=== PATIENT | female | born 2000 | race Caucasian/White ===

== ENCOUNTER 2022-02-22 01:40 | Inpatient (IN) | payer SELFPAY, OTHER ==
[2022-02-22] VITALS (15 sets, daily range): BP systolic 112–152; BP diastolic 68–89; PULSE 66–88; RESP 15–16; TEMP 36.3–36.9; O2SAT 96–99; BMI 35.3
--- NOTE | 2022-02-22 01:50 | HP.PCM.OB_ITS ---
HPI - General General Date of Admission: 02/22/22 HPI Narrative TERESA SALAZAR, is a 22 F at 40.5 weeks who presents as a transfer from [facility] for active labor and increased blood pressures. Purse Framer reported patient's pressures were ranging 150-160/100's. Maternal Data Information VIKTOR Calculator Estimated Delivery Date Method Current WG Current Estimate 02/17/22 Manual 40w 5d PFSH PFSH Allergy/AdvReac Type Severity Reaction Status Date / Time No Known Allergies Allergy Verified 02/22/22 02:15 Visit Details OB Flowsheet Initial Weight: Not Recorded Date -?-?-?-?-?-?-?-?-?-?-?-?- EGA Weight BP Urine Prot -?-?-?-?-?-?-?-?-?-?-?-?- Glucose FHR FuHt Pres Dilation -?-?-?-?-?-?-?-?-?-?-?-?- Effaced St Visit Note 02/22/22 -?-?-?-?-?-?-?-?-?-?-?-?- 40w 5d 193 lb 143/81 137/75 Pending -?-?-?-?-?-?-?-?-?-?-?-?- -?-?-?-?-?-?-?-?-?-?-?-?- ROS Eyes Eyes: Denies blurry vision, change in vision or spots in vision ENT HEENT: Denies dizziness or headache(s) Cardiovascular Cardiovascular: Denies abdominal pain, chest pain or dyspnea Respiratory/Chest Respiratory/Chest: Denies cough, dyspnea, shortness of breath at rest or shortness of breath with exertion Gastrointestinal Gastrointestinal: Denies abdominal pain, diarrhea or vomiting Genitourinary Genitourinary: Denies change in urinary stream, difficulty urinating or dysuria Musculoskeletal Musculoskeletal: Reports none Integumentary Integumentary: Denies rash Neurologic Neurologic: Denies dizziness, headache(s), memory loss or weakness Psychiatric Psychiatric: Reports none Vital Signs Vital Signs Vital Signs: 02/22/22 01:49 02/22/22 01:49 Pulse Rate 83 Blood Pressure 143/81 H BP Systolic 143 BP Diastolic 81 Weight Weight: 193 lb Body Mass Index (BMI) 35.3 Physical Exam Const alert, oriented x3 and no apparent distress General Appearance: cooperative Orientation / Consciousness: awake Exam Limitations: no limitations HEENT normocephalic Head and Scalp: normal to inspection Eyes General Eye: normal appearance of both eyes Neck full ROM and no lymphadenopathy Lymph Lymphatic: no lymphadenopathy noted Chest inspection of chest normal Resp normal respiratory effort, normal air movement and clear to auscultation bilaterally Effort and Inspection: able to speak in complete sentences and symmetric chest movement Cardio regular rate and regular rhythm GI normal to inspection, nondistended, normoactive bowel sounds Manual OB Exam: presentation cephalic Amniotic Fluid: clear amniotic fluid Back/Spine normal ROM Extremity full ROM and no calf tenderness Skin no rashes or lesions noted General Skin Exam: no breakdown Neuro oriented x3 and CN's II-XII intact bilaterally Psych mental status grossly normal and thought process normal Labs Labs Labs: Blood Type Pending Antibody Screen Pending Hct Pending Hgb Pending Syphilis Total Ab Pending Rubella IgG Antibody Pending Hep Bs Antigen Pending HIV 1&2 Antibody Pending A+ Assessment & Plan (1) 40 weeks gestation of : (2) Active labor at term: (3) Elevated blood pressure reading without diagnosis of hypertension: PLAN: Plan CE 9.5cm/0 station Vertex Admit to labor and delivery Routine labs Start hypertension protocol Anticipate imminent delivery Dr. Basilio notified of above and is collaborating physician
[2022-02-22] MEDS: Oxytocin 10 UNITS/ML Vial IM (02:02)
[2022-02-22 02:27] LABS: Mucous, Urine 0 SEEN /hpf (<or=2+); Red Blood Cells-Urine 0 SEEN /hpf (0-5)
--- NOTE | 2022-02-22 02:38 | EX.PCM.OBRPT ---
Assessment & Plan (1) Precipitous delivery: (2) Spontaneous rupture of amniotic membranes: (3) Spontaneous onset of labor: (4) GBS screening not performed: (5) 40 weeks gestation of : (6) Laceration, obstetrical, first degree: Maternal Data Information VIKTOR Calculator Estimated Delivery Date Method Current WG Current Estimate 02/17/22 Manual 40w 5d Vaginal Delivery Maternal Presentation Maternal Presentation: Active Labor and Spontaneous Rupture of Membranes Maternal Presentation: at 40.5 that presented from [facility] for active, spontaneous labor with elevated blood pressures. Operative Information Date of Procedure: 02/22/22 Pre-Operative Diagnosis: Spontaneous onset of labor, SROM, Term gestation Post-Operative Diagnosis: Precipitous delivery, live female Surgery / Procedure Performed: Spontaneous Vaginal Delivery Type of Anesthesia: None Estimated Blood Loss: 150 Time of Delivery: 02:00 Findings Description of Procedure: Patient arrived to unit in active labor and involuntarily bearing down. Called to room. With minimal maternal effort, delivery of head followed immediately by anterior shoulder and remainder of infant body without any traction. Vigorous female placed on maternal abdomen and was attended to by nursing staff. IM Pitocin given for active management of the third stage of labor. 3 vessel cord clamped and cut by FOB after 2 minute delay. placed skin to skin with patient. Placenta delivered spontaneously and intact. Small first degree laceration repaired in usual fashion. Patient declined local anesthesia. Hemostasis obtained. Fundus firm 2 below U. EBL 150 cc. APGARS 8/9. Patient and bonding well at this time. Dr. Basilio notified of delivery. Presentation: Vertex Amniotic Membrane Rupture Type: Spontaneous Time of Membrane Rupture: 1899 Amniotic Fluid Description: Clear Placental Delivery Description: Spontaneous Placenta Disposition: [facility] Cord Vessel Description: 3 Vessels Cord Entanglement: None A Gender: Female (1 minute): 8 (5 minute): 9 Delayed Cord Clamping: Yes Post Vaginal Delivery Medications Given After Delivery: - (IM Pitocin) Episiotomy Description: None Laceration: 1st degree Complication Complications: None
[2022-02-22 03:18] LABS: Absolute Lymphocyte Count 1.73 X10^3/uL (0.83-4.51); Absolute Neutrophil Count 8.9 X10^3/uL (2.0-7.7); Basophil# 0.02 X10^3/uL; Basophil% 0.2 % (0-1); Eosinophil# 0.01 X10^3/uL; Eosinophils% 0.1 % (0-5); Hematocrit 40.5 % (37-47); Hemoglobin 13.6 g/dL (12.0-15.0); Lymphocyte # 1.73 X10^3/ul (0.83-4.51); Lymphocyte % 15.4 % (19-41); Mean Corp Hgb Conc 33.6 g/dL (32-36); Mean Corpuscular Hgb 29.9 pg (27.0-32.0); Monocyte# 0.58 X10^3/uL; Monocyte% 5.1 % (0-10); NRBC Flagged by Analyzer 0 % (0-5); Neutrophil # 8.86 X10^3/uL (2.7-7.7); Neutrophil % 78.6 % (47-70); Platelet Count 228 K/mm3 (150-450); RBC Distribution Width SD 45.2 fl (35.1-43.9); Red Blood Count 4.55 M/mm3 (4.2-5.4); White Blood Count 11.3 K/mm3 (4.4-11.0)
[2022-02-22 03:32] LABS: Color, Urine Yellow (Yellow); Glucose, Dipstick Normal (Normal); Ketone-Dipstick 5 mg/dl (Negative); Leukocyte Esterase-Dipstick 25 /ul (Negative); Nitrite-Dipstick Negative (Negative); Occult Blood-Urine Negative /ul (Negative); Protein-Dipstick 15 mg/dl (Negative); Specific Gravity, Urine 1.015 (1.002-1.030); Urine Bilirubin Dipstick Negative (Negative); Urine Clarity Clear (Clear); Urine Urobilinogen Normal (Normal)
[2022-02-22 03:40] LABS: Bacteria 1+ /hpf (None Seen); Squamous Epithelial Cells - UA 0-5 SEEN /hpf (5-10); White Blood Cells 0-5 SEEN /hpf (0-5)
[2022-02-22 03:49] LABS: Amphetamine Urine VISTA NEGATIVE (<1000 ng/mL); Barbiturate Urine VISTA NEGATIVE (< 200 ng/mL); Benzodiazepine Urine VISTA NEGATIVE (< 200 ng/mL); Cocaine Urine VISTA NEGATIVE (< 300 ng/mL); Ecstacy Urine VISTA NEGATIVE (< 500 ng/mL); Methadone Urine VISTA NEGATIVE (< 300 ng/mL); PCP Urine VISTA NEGATIVE (< 25 ng/mL); THC Urine VISTA NEGATIVE (< 50 ng/mL); Vista UDS pH Range 5
[2022-02-22 04:04] LABS: Protein, Urine (Random) 29.4 mg/dL (<11.9); Protein:Creat Ratio 315 mg/g CRE (0-200)
[2022-02-22 04:07] LABS: AST(SGOT) 21 U/L (15-37); Alanine Aminotransfer ALT/SGPT 26 U/L (13-56); Creatinine, Serum 0.85 mg/dL (0.55-1.02); EST Glomerular Filtration Rate 87 mL/min (>60); Est Glom Filt Rate - Afr Amer 105 mL/min (>60); Estimated Creatinine Clearance 80.72 ml/min; Uric Acid 3.8 mg/dL (2.6-6.0)
[2022-02-22 04:44] LABS: Rubella IgG Reactive (Nonreactive); Syphilis Antibodies Non-reactive
[2022-02-22 05:17] LABS: HIV - WCH Non-Reactive (Nonreactive); Hepatitis B Surface Antigen Non-Reactive (Nonreactive); Hepatitis C Antibody Non-Reactive (Nonreactive)
[2022-02-22 05:28] LABS: Chlamydia Trachomatis by PCR Negative (Negative); Neisserai gonorrhoeae by PCR Negative (Negative); Probe Check PASS; Sample Adequacy Control PASS; Specimen Processing Control PASS
[2022-02-23 04:45] VITALS: BP 113/73; PULSE 67; RESP 17; TEMP 36.5
--- NOTE | 2022-02-23 08:56 | PN.OBGYN_ITS ---
Subjective Subjective Pain well controlled. Average lochia. Denies headache or visual changes or epigastric discomfort. Working on breast-feeding. No other complaints. Objective Data Objective Data Vital Signs: Vital Signs Temp Pulse Resp BP Pulse Ox O2 Del Method 97.7 F L 67 17 113/73 98 Room Air 02/23/22 04:45 02/23/22 04:45 02/23/22 04:45 02/23/22 04:45 02/22/22 23:32 02/22/22 23:32 Oxygen Delivery Method Room Air Weight: 87.543 kg Body Mass Index (BMI) 35.3 Intake & Output: Intake and Output for Last 24 Hours 02/21/22 02/22/22 02/23/22 23:59 23:59 23:59 Output Total 600 / 600 Balance -600 / -600 Lab / Micro Data Result Diagrams: 02/22/22 01:58 02/22/22 01:58 Physical Exam Narrative 2+ DTRs, no clonus,1+ lower extremity edema Const alert and no apparent distress Narrative: Fundus firm, below umbilicus. Assessment & Plan (1) Precipitous delivery: PLAN: Status post vaginal delivery. Patient and are doing well. No evidence of preeclampsia with severe features. Appears to have had gestational hypertension. Has a blood pressure cuff at home. Monitor blood pressures and follow-up with supervisor shuttle fitting or our office later this week or early next week or as needed.
--- NOTE | 2022-02-23 08:58 | PCM.DC.SUM ---
Providers Date of Admission: 02/22/22 Date of Discharge: 02/23/22 Primary Care Physician: Claribel Primary Care Phys Reason For Visit: VAG Diagnosis Discharge Diagnosis (1) Precipitous delivery: Status: Acute Code(s): O62.3 - Precipitate labor Plan: Status post vaginal delivery. Patient and are doing well. No evidence of preeclampsia with severe features. Appears to have had gestational hypertension. Has a blood pressure cuff at home. Monitor blood pressures and follow-up with ticket maker or our office later this week or early next week or as needed. Hospital Course Operations None Summary of Care Provided Hospital Course: Patient arrived and delivered on 02/22/2022. She had some elevated blood pressures consistent with gestational hypertension. No other evidence of preeclampsia with severe features. By day number when she was ambulating, urinating tolerating regular diet. Her blood pressures were normal and she was ready for discharge home. Weight / BMI Weight Weight: 87.543 kg Body Mass Index (BMI) 35.3 ABG / Lab / Microbiology Data Result Diagrams: 02/22/22 01:58 02/22/22 01:58 D/C Instructions May resume sexual activity in: 6 weeks Please Follow Up With: Mayte Mathew CNM When: Follow up with our office or your ticket maker in 7-10 days and 6 weeks or as needed. [phone] [facility] Meaningful Use Info Meaningful Use Diagnoses (Choose all that apply): None applicable Discharge Plan Admission Admit Date/Time: 02/22/22 01:40 Primary Reason for Your Visit: Vaginal delivery Attending Provider: Mayte Mathew Primary Care Provider: Care Physician,Claribel Primary Discharge Orders/Prescriptions Referrals / Follow Up: Care Physician,Claribel Primary [Primary Care Provider] - Disposition Disposition (needs filled in before D/C Order can be placed): Home, Self Care
[2022-02-23 09:47] VITALS: BP 111/75; PULSE 74; RESP 14; TEMP 36.3
== END 2022-02-23 12:15 | disposition home or self-care (01) | DRG 807 ==
PROVIDERS: Obstetrics & Gynecology; Admitting Provider Advanced Practice Midwife; Visit Provider Advanced Practice Midwife
DX: O42.92 Full-term premature rupture of membranes, unspecified as to length of time between rupture and onset of labor (principal); Z37.0 Single live birth; O13.4 Gestational [pregnancy-induced] hypertension without significant proteinuria, complicating childbirth; O62.3 Precipitate labor; O70.0 First degree perineal laceration during delivery; Z3A.40 40 weeks gestation of pregnancy
CPT/HCPCS: 59025; 59050; 80307; 81001; 82565; 82570; 84156; 84450; 84460; 84550; 85025; 86703; 86762; 86780; 86803; 86850; 86900; 86901; 87340; 87491; 87591; 99218; G0378